=== PATIENT | female | born 1970 | race Asian ===

== ENCOUNTER → 2024-06-22 10:58 | Outpatient (REF) | payer OTHER, SELFPAY | LOC: HWWDC 10:58 | PROVIDERS: ATTENDING PHYSICIAN Physician Assistant | DX: K82.4 Cholesterolosis of gallbladder (principal); Z12.31 Encounter for screening mammogram for malignant neoplasm of breast | CPT/HCPCS: 76700; 77063; 77067 ==

== ENCOUNTER → 2025-02-26 10:28 | Outpatient (REF) | payer OTHER, SELFPAY | LOC: RAD 10:28 | PROVIDERS: ATTENDING PHYSICIAN Physician Assistant | DX: K82.4 Cholesterolosis of gallbladder (principal) | CPT/HCPCS: 76700 ==